=== PATIENT | female | born 1980 | race African-American/Black ===

== ENCOUNTER 2016-10-15 13:58 | Emergency (ER) | payer MEDICAID ==
[2016-10-15 15:55] LABS: APPEARANCE CLEAR (CLEAR); BILIRUBIN NEGATIVE (NEGATIVE); COLOR YELLOW (YELLOW); GLUCOSE NEGATIVE (NEGATIVE); KETONE NEGATIVE (NEGATIVE); LEUKOCYTE ESTERASE NEGATIVE (NEGATIVE); NITRITE NEGATIVE (NEGATIVE); PROTEIN NEGATIVE (NEGATIVE); SPECIFIC GRAVITY 1.015 (1.005-1.020); UROBILINOGEN NORMAL (NORMAL)
[2016-10-15 15:56] LABS: BASOPHILS 0.3 % (0.0-2.0); EOSINOPHILS 2.5 % (0-7); HEMATOCRIT 40.7 % (36.0-48.0); HEMOGLOBIN 13.7 g/dL (12-16); IMMATURE GRANULOCYTES 0.1 % (0-5); LYMPHOCYTES 42.3 % (15-50); MCHC 33.7 g/dL (31.0-37.0); MCV 89.1 fL (80.0-100.0); MEAN PLATELET VOLUME 11.2 fL (7.4-10.4); MONOCYTES 6.3 % (2-11); NEUTROPHILS 48.5 % (40-80); PLATELET COUNT 168 10x3/uL (130-400); RBC 4.57 10x6/uL (4.00-5.40); RDW 12.7 % (11.5-14.5); WBC 7.3 10x3/uL (4.8-10.8)
[2016-10-15 16:04] LABS: HCG SERUM NEGATIVE (NEGATIVE)
[2016-10-15 16:13] LABS: ALBUMIN 3.7 g/dL (3.4-5.0); ANION GAP 12.7 mmol/L (8-16); BILIRUBIN - TOTAL 0.53 mg/dL (0.2-1.3); CALCIUM 9.2 mg/dL (8.5-10.1); CARBON DIOXIDE 28.7 mmol/L (21.0-32.0); POTASSIUM - SERUM 4.4 mmol/L (3.5-5.1); PROTEIN - SERUM 7.5 g/dL (6.4-8.2)
[2016-10-15 16:14] LABS: VALPROIC ACID (DEPAKOTE) 56.7 ug/mL (50.0-100.0)
== END 2016-10-15 17:18 | disposition home or self-care (01) ==
LOC: D.ER 13:58
PROVIDERS: Emergency Medicine
DX: N73.0 Acute parametritis and pelvic cellulitis (principal); R73.03 Prediabetes; G40.909 Epilepsy, unspecified, not intractable, without status epilepticus; F17.200 Nicotine dependence, unspecified, uncomplicated

== ENCOUNTER 2016-10-28 15:47 | Emergency (ER) | payer MEDICAID ==
[2016-10-28 18:12] LABS: BASOPHILS 0.4 % (0-2); EOSINOPHILS 3.5 % (0-7); HEMATOCRIT 41.6 % (36.0-48.0); HEMOGLOBIN 13.8 g/dL (12-16); IMMATURE GRANULOCYTES 0.4 % (0-5); LYMPHOCYTES 29.7 % (15-50); MCH 29.9 pg (26.0-34.0); MCHC 33.2 g/dL (31.0-37.0); MONOCYTES 7.3 % (2-11); NEUTROPHILS 58.7 % (40-80); PLATELET COUNT 196 10x3/uL (130-400); RBC 4.62 10x6/uL (4.00-5.40); WBC 7.5 10x3/uL (4.8-10.8)
[2016-10-28 18:35] LABS: ALBUMIN 3.8 g/dL (3.4-5.0); ANION GAP 15.5 mmol/L (8-16); BILIRUBIN - TOTAL 0.24 mg/dL (0.2-1.3); CALCIUM 9.7 mg/dL (8.5-10.1); CARBON DIOXIDE 25.6 mmol/L (21.0-32.0); CREATININE - SERUM 1.1 mg/dL (0.6-1.3); POTASSIUM - SERUM 4.1 mmol/L (3.5-5.1); PROTEIN - SERUM 7.3 g/dL (6.4-8.2)
== END 2016-10-28 20:10 | disposition home or self-care (01) ==
LOC: D.ER 15:47
PROVIDERS: Emergency Medicine
DX: J06.9 Acute upper respiratory infection, unspecified (principal); J20.9 Acute bronchitis, unspecified; F17.200 Nicotine dependence, unspecified, uncomplicated; R73.03 Prediabetes; G40.909 Epilepsy, unspecified, not intractable, without status epilepticus

== ENCOUNTER 2017-03-02 04:45 | Emergency (ER) | payer MEDICAID ==
[2017-03-02 06:01] LABS: BASOPHILS 0.3 % (0-2); EOSINOPHILS 2.9 % (0-7); HEMATOCRIT 39.3 % (36.0-48.0); HEMOGLOBIN 13.2 g/dL (12-16); IMMATURE GRANULOCYTES 0.3 % (0-5); LYMPHOCYTES 46.5 % (15-50); MCH 29.5 pg (26.0-34.0); MCHC 33.6 g/dL (31.0-37.0); MCV 87.9 fL (80.0-100.0); MEAN PLATELET VOLUME 10.9 fL (7.4-10.4); MONOCYTES 7.9 % (2-11); NEUTROPHILS 42.1 % (40-80); PLATELET COUNT 196 10x3/uL (130-400); RBC 4.47 10x6/uL (4.00-5.40); WBC 7.9 10x3/uL (4.8-10.8)
[2017-03-02 06:11] LABS: ALBUMIN 3.6 g/dL (3.4-5.0); ANION GAP 14.6 mmol/L (8-16); BILIRUBIN - TOTAL 0.34 mg/dL (0.2-1.3); CARBON DIOXIDE 24.5 mmol/L (21.0-32.0); CREATININE - SERUM 0.9 mg/dL (0.6-1.3); POTASSIUM - SERUM 4.1 mmol/L (3.5-5.1); PROTEIN - SERUM 7.4 g/dL (6.4-8.2); VALPROIC ACID (DEPAKOTE) 43.4 ug/mL (50.0-100.0)
[2017-03-02 06:25] LABS: UDS - AMPHET NEGATIVE QUAL (NEGATIVE); UDS - BARB NEGATIVE QUAL (NEGATIVE); UDS - BENZO NEGATIVE QUAL (NEGATIVE); UDS - COCAINE NEGATIVE QUAL (NEGATIVE); UDS - METH NEGATIVE QUAL (NEGATIVE); UDS - OPIATE NEGATIVE QUAL (NEGATIVE); UDS - PCP NEGATIVE QUAL (NEGATIVE); UDS - THC NEGATIVE QUAL (NEGATIVE)
[2017-03-02 06:36] LABS: HCG URINE NEGATIVE (NEGATIVE)
[2017-03-02 06:41] LABS: APPEARANCE HAZY (CLEAR); BACTERIA FEW /hpf (NONE SEEN); BILIRUBIN NEGATIVE (NEGATIVE); COLOR YELLOW (YELLOW); GLUCOSE NEGATIVE (NEGATIVE); GRANULAR CAST RARE /lpf (NONE SEEN); KETONE NEGATIVE (NEGATIVE); LEUKOCYTE ESTERASE 1+ (NEGATIVE); MUCUS <1+ /lpf (NONE SEEN); NITRITE NEGATIVE (NEGATIVE); PROTEIN NEGATIVE (NEGATIVE); RED CELLS - URINE 0-5 /hpf (0-5); UROBILINOGEN NORMAL (NORMAL)
== END 2017-03-02 06:56 | disposition home or self-care (01) ==
LOC: D.ER 04:45
PROVIDERS: Emergency Medicine
DX: A59.01 Trichomonal vulvovaginitis (principal); G40.909 Epilepsy, unspecified, not intractable, without status epilepticus; F17.200 Nicotine dependence, unspecified, uncomplicated

== ENCOUNTER 2017-03-21 14:49 | Emergency (ER) | payer MEDICAID | END 2017-03-21 17:32 | disposition home or self-care (01) | LOC: D.ER 14:49 | DX: S83.92XA Sprain of unspecified site of left knee, initial encounter (principal); X58.XXXA Exposure to other specified factors, initial encounter; Y93.89 Activity, other specified; Y92.89 Other specified places as the place of occurrence of the external cause; F17.200 Nicotine dependence, unspecified, uncomplicated ==

== ENCOUNTER 2017-04-08 07:24 | Emergency (ER) | payer MEDICAID | END 2017-04-08 08:47 | disposition home or self-care (01) | LOC: D.ER 07:24 | DX: S83.001A Unspecified subluxation of right patella, initial encounter (principal); X58.XXXA Exposure to other specified factors, initial encounter; Y93.89 Activity, other specified; Y92.029 Unspecified place in mobile home as the place of occurrence of the external cause; M25.461 Effusion, right knee; F17.200 Nicotine dependence, unspecified, uncomplicated ==

== ENCOUNTER 2017-07-22 13:11 | Emergency (ER) | payer MEDICAID | END 2017-07-22 14:52 | disposition home or self-care (01) | LOC: D.ER 13:11 | DX: M25.562 Pain in left knee (principal) ==

== ENCOUNTER 2017-09-08 15:59 | Emergency (ER) | payer SELFPAY ==
[2017-09-08 19:41] LABS: BASOPHILS 0.3 % (0-2); EOSINOPHILS 2.9 % (0-7); HEMATOCRIT 40.9 % (36.0-48.0); HEMOGLOBIN 13.7 g/dL (12-16); IMMATURE GRANULOCYTES 0.2 % (0-5); LYMPHOCYTES 44.9 % (15-50); MCH 29.5 pg (26.0-34.0); MCHC 33.5 g/dL (31.0-37.0); MEAN PLATELET VOLUME 11.4 fL (7.4-10.4); MONOCYTES 11.1 % (2-11); NEUTROPHILS 40.6 % (40-80); PLATELET COUNT 238 10x3/uL (130-400); RBC 4.65 10x6/uL (4.00-5.40); RDW 13.2 % (11.5-14.5); WBC 8.8 10x3/uL (4.8-10.8)
[2017-09-08 19:49] LABS: ALBUMIN 3.7 g/dL (3.4-5.0); ANION GAP 15.3 mmol/L (8-16); BILIRUBIN - TOTAL 0.28 mg/dL (0.2-1.3); CALCIUM 9.2 mg/dL (8.5-10.1); CARBON DIOXIDE 25.2 mmol/L (21.0-32.0); POTASSIUM - SERUM 4.5 mmol/L (3.5-5.1); PROTEIN - SERUM 7.2 g/dL (6.4-8.2)
== END 2017-09-08 21:10 | disposition home or self-care (01) ==
LOC: D.ER 15:59
PROVIDERS: Family Medicine
DX: J06.9 Acute upper respiratory infection, unspecified (principal); F17.200 Nicotine dependence, unspecified, uncomplicated

== ENCOUNTER 2017-12-28 11:59 | Emergency (ER) | payer SELFPAY ==
[~2017-12-28] VITALS: Ht 167.6 cm; Wt 104.5 kg
[2017-12-28 12:08] VITALS: Ht 167.6 cm; Wt 104.5 kg
[2017-12-28] MEDS ORDERED: DEPAKOTE250 MG PO ×2 (12:09→12:55)
[2017-12-28 13:51] VITALS: BP 132/80
== END 2017-12-28 13:51 | disposition home or self-care (01) ==
LOC: D.ER 11:59
DX: G40.909 Epilepsy, unspecified, not intractable, without status epilepticus (principal); F17.200 Nicotine dependence, unspecified, uncomplicated

== ENCOUNTER 2018-03-03 10:10 | Emergency (ER) | payer SELFPAY ==
[~2018-03-03] VITALS: Ht 167.6 cm; Wt 114.1 kg
[~2018-03-03 10:10] MED LIST: DEPAKOTE250 MG PO
[2018-03-03 10:13] VITALS: Ht 167.6 cm; Wt 114.1 kg
[2018-03-03 11:01] LABS: BASOPHILS 0.4 % (0-2); EOSINOPHILS 2.4 % (0-7); HEMATOCRIT 36.2 % (36.0-48.0); HEMOGLOBIN 12.4 g/dL (12-16); IMMATURE GRANULOCYTES 0.1 % (0-5); LYMPHOCYTES 45.7 % (15-50); MCH 29.6 pg (26.0-34.0); MCHC 34.3 g/dL (31.0-37.0); MCV 86.4 fL (80.0-100.0); MEAN PLATELET VOLUME 10.6 fL (7.4-10.4); NEUTROPHILS 44.4 % (40-80); PLATELET COUNT 220 10x3/uL (130-400); RBC 4.19 10x6/uL (4.00-5.40); WBC 6.7 10x3/uL (4.8-10.8)
[2018-03-03] MEDS ORDERED: KEPPRA500 MG PO ×2 (11:11→11:26)
[2018-03-03 11:14] LABS: ALBUMIN 3.7 g/dL (3.4-5.0); ALKALINE PHOSPHATASE 56 U/L (46-116); ALT (SGPT) 14 U/L (10-68); BILIRUBIN - TOTAL 0.41 mg/dL (0.2-1.3); CALC OSMOLALITY 272 mosm/kg (275-300); CALCIUM 8.8 mg/dL (8.5-10.1); CARBON DIOXIDE 23.6 mmol/L (21.0-32.0); CHLORIDE - SERUM 106 mmol/L (98-107); GLUCOSE 95 mg/dL (74-106); POTASSIUM - SERUM 4.2 mmol/L (3.5-5.1); PROTEIN - SERUM 7.5 g/dL (6.4-8.2); SODIUM 137 mmol/L (136-145); UREA NITROGEN 9 mg/dL (7-18); eGFR NON AFRICAN AMERICAN 66 mL/min (90-120)
[2018-03-03 11:16] LABS: VALPROIC ACID (DEPAKOTE) < 3.0 ug/mL (50.0-100.0)
[2018-03-03 14:05] VITALS: BP 124/87
== END 2018-03-03 14:06 | disposition home or self-care (01) ==
LOC: D.ER 10:10
PROVIDERS: Family Medicine
DX: G40.909 Epilepsy, unspecified, not intractable, without status epilepticus (principal); Z91.14 Patient's other noncompliance with medication regimen; F17.200 Nicotine dependence, unspecified, uncomplicated

== ENCOUNTER 2018-04-04 11:23 | Emergency (ER) | payer SELFPAY ==
[~2018-04-04] VITALS: Ht 167.6 cm; Wt 109.1 kg
[~2018-04-04 11:23] MED LIST changes: +KEPPRA500 MG PO
[2018-04-04 11:43] VITALS: Ht 167.6 cm; Wt 109.1 kg
[2018-04-04] MEDS ORDERED: IMITREX50 MG PO (13:23)
[2018-04-04] MEDS ORDERED: BUTALB-APAP-CA1 EACH PO (13:23)
[2018-04-04 15:19] VITALS: BP 120/78
== END 2018-04-04 15:00 | disposition home or self-care (01) ==
LOC: D.ER 11:23
DX: G43.909 Migraine, unspecified, not intractable, without status migrainosus (principal); R11.0 Nausea; G40.909 Epilepsy, unspecified, not intractable, without status epilepticus; F17.200 Nicotine dependence, unspecified, uncomplicated

== ENCOUNTER 2018-04-19 12:50 | Emergency (ER) | payer SELFPAY ==
[~2018-04-19] VITALS: Ht 167.6 cm; Wt 111.4 kg
[~2018-04-19 12:50] MED LIST changes: +BUTALB-APAP-CA1 EACH PO; +IMITREX50 MG PO
[2018-04-19 13:10] VITALS: Ht 167.6 cm; Wt 111.4 kg
[2018-04-19] MEDS ORDERED: VENTOLIN HFA18 GM INH (14:09)
[2018-04-19] MEDS ORDERED: OMNICEF300 MG PO (14:09)
[2018-04-19 14:27] VITALS: BP 128/87
== END 2018-04-19 14:28 | disposition home or self-care (01) ==
LOC: D.ER 12:50
DX: J01.90 Acute sinusitis, unspecified (principal); J20.9 Acute bronchitis, unspecified; M79.18 Myalgia, other site; R06.09 Other forms of dyspnea; R19.7 Diarrhea, unspecified; G40.909 Epilepsy, unspecified, not intractable, without status epilepticus; F17.200 Nicotine dependence, unspecified, uncomplicated

== ENCOUNTER 2018-06-13 15:40 | Emergency (ER) | payer SELFPAY ==
[~2018-06-13] VITALS: Ht 167.6 cm; Wt 109.1 kg
[~2018-06-13 15:40] MED LIST changes: +OMNICEF300 MG PO; +VENTOLIN HFA18 GM INH
[2018-06-13 16:03] VITALS: Ht 167.6 cm; Wt 109.1 kg
[2018-06-13] MEDS ORDERED: IBUPROFEN200 MG PO (16:06)
[2018-06-13 17:19] LABS: BASOPHILS 0.7 % (0-2); EOSINOPHILS 2.4 % (0-7); HEMATOCRIT 38.1 % (36.0-48.0); HEMOGLOBIN 12.8 g/dL (12-16); IMMATURE GRANULOCYTES 0.5 % (0-5); LYMPHOCYTES 42.3 % (15-50); MCH 28.8 pg (26.0-34.0); MCHC 33.6 g/dL (31.0-37.0); MCV 85.8 fL (80.0-100.0); MEAN PLATELET VOLUME 10.2 fL (7.4-10.4); MONOCYTES 13.9 % (2-11); NEUTROPHILS 40.2 % (40-80); PLATELET COUNT 252 10x3/uL (130-400); RBC 4.44 10x6/uL (4.00-5.40); RDW 13.2 % (11.5-14.5); WBC 6.1 10x3/uL (4.8-10.8)
[2018-06-13 17:31] LABS: ANION GAP 17.5 mmol/L (8-16); CALCIUM 8.8 mg/dL (8.5-10.1); CARBON DIOXIDE 23.2 mmol/L (21.0-32.0); CREATININE - SERUM 1.1 mg/dL (0.6-1.3); POTASSIUM - SERUM 3.7 mmol/L (3.5-5.1)
[2018-06-13 18:00] LABS: APPEARANCE CLEAR (CLEAR); COLOR YELLOW (YELLOW); NITRITE NEGATIVE (NEGATIVE); SPECIFIC GRAVITY 1.015 (1.005-1.020)
[2018-06-13 18:01] LABS: BILIRUBIN NEGATIVE (NEGATIVE); GLUCOSE NEGATIVE (NEGATIVE); KETONE NEGATIVE (NEGATIVE); PROTEIN NEGATIVE (NEGATIVE); UROBILINOGEN NORMAL (NORMAL); WHITE CELLS - URINE 0-5 /hpf (0-5)
[2018-06-13] MEDS ORDERED: TORADOL10 MG PO (18:32)
[2018-06-13] MEDS ORDERED: AUGMENTIN 875-11 TAB PO (18:32)
[2018-06-13] MEDS ORDERED: MEDROL DOSE PACK4 MG PO (18:32)
[2018-06-13 18:46] VITALS: BP 148/78
== END 2018-06-13 18:47 | disposition home or self-care (01) ==
LOC: D.ER 15:40
PROVIDERS: Family Medicine
DX: J01.90 Acute sinusitis, unspecified (principal); J06.9 Acute upper respiratory infection, unspecified; F17.200 Nicotine dependence, unspecified, uncomplicated

== ENCOUNTER 2018-08-28 14:16 | Emergency (ER) | payer SELFPAY ==
[~2018-08-28] VITALS: Ht 167.6 cm; Wt 115.9 kg
[~2018-08-28 14:16] MED LIST changes: +AUGMENTIN 875-11 TAB PO; +IBUPROFEN200 MG PO; +MEDROL DOSE PACK4 MG PO; +TORADOL10 MG PO
[2018-08-28 14:20] VITALS: Ht 167.6 cm; Wt 115.9 kg
[2018-08-28] MEDS ORDERED: VIBRAMYCIN 100100 MG PO (16:54)
[2018-08-28] MEDS ORDERED: PHENERGAN DM SYR5 ML PO (16:54)
[2018-08-28] MEDS ORDERED: ALBUTEROL SULF8.5 GM INH (16:54)
[2018-08-28 17:15] VITALS: BP 136/72
== END 2018-08-28 17:29 | disposition home or self-care (01) ==
LOC: D.ER 14:16
DX: G40.909 Epilepsy, unspecified, not intractable, without status epilepticus (principal); J40 Bronchitis, not specified as acute or chronic; Z91.14 Patient's other noncompliance with medication regimen

== ENCOUNTER 2018-09-18 22:18 | Emergency (ER) | payer SELFPAY ==
[~2018-09-18] VITALS: Ht 167.6 cm; Wt 113.6 kg
[~2018-09-18 22:18] MED LIST changes: +ALBUTEROL SULF8.5 GM INH; +PHENERGAN DM SYR5 ML PO; +VIBRAMYCIN 100100 MG PO
[2018-09-18 22:25] VITALS: Ht 167.6 cm; Wt 113.6 kg
[2018-09-18 23:33] LABS: HEMATOCRIT 35.3 % (36.0-48.0); HEMOGLOBIN 11.9 g/dL (12-16); LYMPHOCYTES 50.2 % (15-50); MCH 27.8 pg (26.0-34.0); MCHC 33.7 g/dL (31.0-37.0); MCV 82.5 fL (80.0-100.0); MEAN PLATELET VOLUME 10.2 fL (7.4-10.4); NEUTROPHILS 40.6 % (40-80); PLATELET COUNT 241 10x3/uL (130-400); RBC 4.28 10x6/uL (4.00-5.40); RDW 13.2 % (11.5-14.5); WBC 7.1 10x3/uL (4.8-10.8)
[2018-09-18 23:49] LABS: ALBUMIN 3.3 g/dL (3.4-5.0); ANION GAP 14.3 mmol/L (8-16); BILIRUBIN - TOTAL 0.34 mg/dL (0.2-1.3); CALCIUM 8.7 mg/dL (8.5-10.1); CARBON DIOXIDE 22.3 mmol/L (21.0-32.0); POTASSIUM - SERUM 3.6 mmol/L (3.5-5.1); PROTEIN - SERUM 7.2 g/dL (6.4-8.2)
[2018-09-18 23:58] LABS: MAGNESIUM - SERUM 1.9 mg/dL (1.8-2.4); THYROID STIMULATING HORMONE 0.62 uIU/mL (0.36-3.74)
[2018-09-19 01:58] LABS: APPEARANCE CLEAR (CLEAR); BILIRUBIN NEGATIVE (NEGATIVE); COLOR YELLOW (YELLOW); GLUCOSE NEGATIVE (NEGATIVE); HCG URINE NEGATIVE (NEGATIVE); KETONE NEGATIVE (NEGATIVE); NITRITE NEGATIVE (NEGATIVE); PROTEIN NEGATIVE (NEGATIVE); UROBILINOGEN NORMAL (NORMAL)
[2018-09-19 01:59] LABS: BACTERIA FEW /hpf (NONE SEEN); EPITHELIAL CELLS 0-5 /hpf (0-5); RED CELLS - URINE 0-5 /hpf (0-5); WHITE CELLS - URINE 0-5 /hpf (0-5)
[2018-09-19] MEDS ORDERED: KEPPRA500 MG PO (02:15)
[2018-09-19] MEDS ORDERED: AUGMENTIN 875-11 TAB PO (02:15)
[2018-09-19 02:37] VITALS: BP 128/83
== END 2018-09-19 02:38 | disposition home or self-care (01) ==
LOC: D.ER 22:18
PROVIDERS: Family Medicine
DX: G40.909 Epilepsy, unspecified, not intractable, without status epilepticus (principal); J01.90 Acute sinusitis, unspecified

== ENCOUNTER 2018-10-20 07:20 | Emergency (ER) | payer SELFPAY ==
[~2018-10-20] VITALS: Ht 167.6 cm; Wt 113.2 kg
[2018-10-20 07:39] VITALS: Ht 167.6 cm; Wt 113.2 kg
[2018-10-20] MEDS ORDERED: CYCLOBENZAPRINE5 MG PO (08:14)
[2018-10-20] MEDS ORDERED: NAPROSYN500 MG PO (08:14)
[2018-10-20 08:20] VITALS: BP 138/79
== END 2018-10-20 08:21 | disposition home or self-care (01) ==
LOC: D.ER 07:20
DX: S46.911A Strain of unspecified muscle, fascia and tendon at shoulder and upper arm level, right arm, initial encounter (principal); X58.XXXA Exposure to other specified factors, initial encounter

== ENCOUNTER 2018-11-07 20:33 | Emergency (ER) | payer SELFPAY ==
[~2018-11-07] VITALS: Ht 167.6 cm; Wt 109.1 kg
[~2018-11-07 20:33] MED LIST changes: +CYCLOBENZAPRINE5 MG PO; +NAPROSYN500 MG PO
[2018-11-07 20:40] VITALS: BP 136/109; Ht 167.6 cm; Wt 109.1 kg
[2018-11-07 21:28] LABS: BASOPHILS 0.2 % (0-2); EOSINOPHILS 1.9 % (0-7); HEMATOCRIT 37.7 % (36.0-48.0); HEMOGLOBIN 12.6 g/dL (12-16); IMMATURE GRANULOCYTES 0.2 % (0-5); LYMPHOCYTES 22.4 % (15-50); MCH 27.3 pg (26.0-34.0); MCHC 33.4 g/dL (31.0-37.0); MCV 81.6 fL (80.0-100.0); MEAN PLATELET VOLUME 10.2 fL (7.4-10.4); MONOCYTES 5.3 % (2-11); PLATELET COUNT 240 10x3/uL (130-400); RBC 4.62 10x6/uL (4.00-5.40); RDW 13.8 % (11.5-14.5); WBC 8.8 10x3/uL (4.8-10.8)
[2018-11-07 21:47] LABS: ALBUMIN 3.5 g/dL (3.4-5.0); ANION GAP 12.5 mmol/L (8-16); BILIRUBIN - TOTAL 0.46 mg/dL (0.2-1.3); CALCIUM 9.1 mg/dL (8.5-10.1); CARBON DIOXIDE 24.5 mmol/L (21.0-32.0); PROTEIN - SERUM 7.6 g/dL (6.4-8.2)
[2018-11-08] MEDS ORDERED: TESSALON PERLE100 MG PO (20:08)
[2018-11-08] MEDS ORDERED: ALBUTEROL SULF8.5 GM INH (20:08)
[2018-11-08] MEDS ORDERED: LEVOFLOXACIN500 MG PO (20:09)
== END 2018-11-07 22:51 | disposition home or self-care (01) ==
LOC: D.ER 20:33
PROVIDERS: Family Medicine
DX: R09.89 Other specified symptoms and signs involving the circulatory and respiratory systems (principal)

== ENCOUNTER 2018-11-08 18:46 | Emergency (ER) | payer SELFPAY ==
[~2018-11-08] VITALS: Ht 167.6 cm; Wt 110.9 kg
[2018-11-08 18:59] VITALS: Ht 167.6 cm; Wt 110.9 kg
[2018-11-08] MEDS ORDERED: TESSALON PERLE100 MG PO (20:08)
[2018-11-08] MEDS ORDERED: ALBUTEROL SULF8.5 GM INH (20:08)
[2018-11-08] MEDS ORDERED: LEVOFLOXACIN500 MG PO (20:09)
[2018-11-08 20:24] VITALS: BP 135/86
== END 2018-11-08 20:25 | disposition home or self-care (01) ==
LOC: D.ER 18:46
DX: J40 Bronchitis, not specified as acute or chronic (principal)

== ENCOUNTER 2019-01-02 22:38 | Emergency (ER) | payer SELFPAY ==
[~2019-01-02] VITALS: Ht 167.6 cm; Wt 112.3 kg
[~2019-01-02 22:38] MED LIST changes: +LEVOFLOXACIN500 MG PO; +TESSALON PERLE100 MG PO
[2019-01-02 22:52] VITALS: BP 133/88; Ht 167.6 cm; Wt 112.3 kg
== END 2019-01-03 00:32 | disposition left against medical advice (07) ==
LOC: D.ER 22:38
DX: R05 Cough (principal); R09.89 Other specified symptoms and signs involving the circulatory and respiratory systems

== ENCOUNTER 2019-02-16 22:02 | Emergency (ER) | payer SELFPAY ==
[2019-01-02 22:52] VITALS: Ht 167.6 cm; Wt 111.4 kg
[~2019-02-16] VITALS: Ht 167.6 cm; Wt 111.4 kg
[2019-02-16] MEDS ORDERED: KEPPRA500 MG PO (23:27)
[2019-02-16 23:42] VITALS: BP 114/77
== END 2019-02-16 23:42 | disposition home or self-care (01) ==
LOC: D.ER 22:02
DX: G40.909 Epilepsy, unspecified, not intractable, without status epilepticus (principal); R53.81 Other malaise

== ENCOUNTER 2019-04-05 21:57 | Emergency (ER) | payer SELFPAY ==
[~2019-04-05] VITALS: Ht 167.6 cm; Wt 109.1 kg
[2019-04-05 22:26] VITALS: Ht 167.6 cm; Wt 109.1 kg
[2019-04-06] MEDS ORDERED: ZOFRAN ODT4 MG/UDTAB PO (02:43)
[2019-04-06 03:03] VITALS: BP 112/78
== END 2019-04-06 03:03 | disposition home or self-care (01) ==
LOC: D.ER 21:57
DX: R11.2 Nausea with vomiting, unspecified (principal)

== ENCOUNTER 2019-06-15 14:47 | Emergency (ER) | payer SELFPAY ==
[~2019-06-15] VITALS: Ht 167.6 cm; Wt 108.3 kg
[~2019-06-15 14:47] MED LIST changes: +ZOFRAN ODT4 MG/UDTAB PO
[2019-06-15 15:04] VITALS: Ht 167.6 cm; Wt 108.3 kg
[2019-06-15] MEDS ORDERED: DEPO (15:11)
[2019-06-15] MEDS ORDERED: EC-NAPROSYN500 MG PO (17:10)
[2019-06-15 17:23] VITALS: BP 138/96
== END 2019-06-15 17:25 | disposition home or self-care (01) ==
LOC: D.ER 14:47
DX: R51 Headache (principal); R11.0 Nausea; H53.149 Visual discomfort, unspecified

== ENCOUNTER 2019-09-07 07:19 | Emergency (ER) | payer OTHER ==
[~2019-09-07] VITALS: Ht 167.6 cm; Wt 110.9 kg
[~2019-09-07 07:19] MED LIST changes: +DEPO; +EC-NAPROSYN500 MG PO
[2019-09-07 07:23] VITALS: Ht 167.6 cm; Wt 110.9 kg
[2019-09-07 07:43] LABS: BILIRUBIN NEGATIVE (NEGATIVE); GLUCOSE NEGATIVE (NEGATIVE); KETONE NEGATIVE (NEGATIVE); NITRITE NEGATIVE (NEGATIVE); UROBILINOGEN NORMAL (NORMAL)
[2019-09-07 07:56] LABS: HCG URINE NEGATIVE (NEGATIVE)
[2019-09-07 08:12] LABS: BASOPHILS 0.2 % (0-2); EOSINOPHILS 1.7 % (0-7); HEMATOCRIT 37.6 % (36.0-48.0); HEMOGLOBIN 12.2 g/dL (12-16); IMMATURE GRANULOCYTES 0.2 % (0-5); LYMPHOCYTES 33.3 % (15-50); MCH 26.9 pg (26.0-34.0); MCHC 32.4 g/dL (31.0-37.0); MEAN PLATELET VOLUME 9.7 fL (7.4-10.4); MONOCYTES 7.5 % (2-11); NEUTROPHILS 57.1 % (40-80); PLATELET COUNT 249 10x3/uL (130-400); RBC 4.53 10x6/uL (4.00-5.40); RDW 14.4 % (11.5-14.5); WBC 8.1 10x3/uL (4.8-10.8)
[2019-09-07 08:31] LABS: ALKALINE PHOSPHATASE 62 U/L (30-120); ALT (SGPT) 16 U/L (10-68); AMYLASE - SERUM 29 U/L (25-115); BILIRUBIN - TOTAL 0.52 mg/dL (0.2-1.3); CALC OSMOLALITY 280 mosm/kg (275-300); CALCIUM 9.2 mg/dL (8.5-10.1); CARBON DIOXIDE 25.8 mmol/L (21.0-32.0); CHLORIDE - SERUM 106 mmol/L (98-107); GLUCOSE 109 mg/dL (74-106); LIPASE 47 U/L (73-393); POTASSIUM - SERUM 4.2 mmol/L (3.5-5.1); PROTEIN - SERUM 7.4 g/dL (6.4-8.2); SODIUM 141 mmol/L (136-145); TROPONIN-I < 0.017 ng/mL (0.000-0.060); UREA NITROGEN 9 mg/dL (7-18); eGFR NON AFRICAN AMERICAN 65 mL/min (90-120)
[2019-09-07] MEDS ORDERED: IBUPROFEN800 MG PO (08:59)
[2019-09-07] MEDS ORDERED: CYCLOBENZAPRINE10 MG PO (08:59)
[2019-09-07] MEDS ORDERED: ACETAMINOPHEN500 M1 PO (08:59)
[2019-09-07 09:31] VITALS: BP 138/88
== END 2019-09-07 09:36 | disposition home or self-care (01) ==
LOC: D.ER 07:19
PROVIDERS: Family Medicine
DX: R10.9 Unspecified abdominal pain (principal); M79.18 Myalgia, other site; T14.8XXA Other injury of unspecified body region, initial encounter

== ENCOUNTER 2019-11-07 23:11 | Emergency (ER) | payer OTHER ==
[~2019-11-07] VITALS: Ht 167.6 cm; Wt 104.5 kg
[~2019-11-07 23:11] MED LIST changes: +ACETAMINOPHEN500 M1 PO; +CYCLOBENZAPRINE10 MG PO; +IBUPROFEN800 MG PO
[2019-11-07 23:32] VITALS: Ht 167.6 cm; Wt 104.5 kg
[2019-11-08] MEDS ORDERED: KEPPRA500 MG PO (00:43)
[2019-11-08 01:18] VITALS: BP 136/88
== END 2019-11-08 01:19 | disposition home or self-care (01) ==
LOC: D.ER 23:11
DX: G40.909 Epilepsy, unspecified, not intractable, without status epilepticus (principal); Z76.0 Encounter for issue of repeat prescription

== ENCOUNTER 2019-12-11 11:00 | Inpatient (IN) | payer OTHER ==
[~2019-12-11] VITALS: Ht 167.6 cm; Wt 116.6 kg
[2019-12-11 11:50] LABS: ANION GAP 16.4 mmol/L (8-16); CALCIUM 9.6 mg/dL (8.5-10.1); CARBON DIOXIDE 22.7 mmol/L (21.0-32.0); POTASSIUM - SERUM 4.1 mmol/L (3.5-5.1)
[2019-12-11 11:55] LABS: ALBUMIN 4.3 g/dL (3.4-5.0); BILIRUBIN - TOTAL 0.71 mg/dL (0.2-1.3); PROTEIN - SERUM 7.8 g/dL (6.4-8.2)
[2019-12-11 12:07] VITALS: BP 130/78
[2019-12-11 12:12] LABS: BACTERIA MODERATE /hpf (NEGATIVE); BILIRUBIN NEGATIVE (NEGATIVE); GLUCOSE NEGATIVE (NEGATIVE); KETONE NEGATIVE (NEGATIVE); NITRITE NEGATIVE (NEGATIVE); RED CELLS - URINE 0-5 /hpf (0-5); SPECIFIC GRAVITY 1.025 (1.005-1.020); UROBILINOGEN NORMAL (NORMAL); WHITE CELLS - URINE 0-5 /hpf (NEGATIVE)
[2019-12-11 12:21] LABS: HEMATOCRIT 42.5 % (36.0-48.0); HEMOGLOBIN 13.8 g/dL (12-16); LYMPHOCYTES 45.9 % (15-50); MCHC 32.5 g/dL (31.0-37.0); MEAN PLATELET VOLUME 10.3 fL (7.4-10.4); NEUTROPHILS 41.5 % (40-80); PLATELET COUNT 281 10x3/uL (130-400); RBC 5.12 10x6/uL (4.00-5.40); RDW 13.8 % (11.5-14.5); WBC 6.6 10x3/uL (4.8-10.8)
[2019-12-11 12:22] LABS: HCG SERUM NEGATIVE (NEGATIVE)
[2019-12-11 13:06] VITALS: BP 120/82
[2019-12-11 15:06] VITALS: BP 123/75
[2019-12-11 15:41] VITALS: BP 123/75; BMI 40.4
--- NOTE | 2019-12-11 16:05 | NUR ---
NEW PATIENT ADMIT FROM ER VIA WC ACCOMPANIED BY HOSPITAL STAFF. PATIENT TRANSFERRED TO HOSPITAL BED EASILY. PATIENT IS ALERT , ORIENTED X 4 AND NO ACUTE DISTRESS. PATIENT DENIES ANY PAIN AND GIVEN ICE WATER REQUESTED. PATIENT ASSESSMENT COMPLETED. PATIENT ORIENTED TATED TO ROOM AND CALL LIGHT . WILL CONTINUE WITH PLAN OF CARE. SR UP X 2 BED IN LOW POSITION AND CALL LIGHT IN REACH.
[2019-12-11 20:17] VITALS: BP 103/65
[2019-12-12 00:24] VITALS: BP 117/75
--- NOTE | 2019-12-12 00:41 | NUR ---
RECEIVED CALL FROM A GENTLEMEN STATING, HE WAS HER BROTHER AND LIVES IN [facility] REQUESTING INFORMATION REGARDING PATIENT. THIS GENTLEMEN WAS UNABLE TO PROVIDE THE PATIENTS CODE. GENTLEMEN WAS ASKED TO CALL AT 0700 AND THAT IF THE PATIENT WAS HERE WHEN WOULD TRANSFER CALL TO HER ROOM.
[2019-12-12 05:11] VITALS: BP 113/67
[2019-12-12 06:13] LABS: BASOPHILS 0.4 % (0-2); EOSINOPHILS 2.4 % (0-7); HEMATOCRIT 34.8 % (36.0-48.0); HEMOGLOBIN 11.1 g/dL (12-16); IMMATURE GRANULOCYTES 0.2 % (0-5); LYMPHOCYTES 34.5 % (15-50); MCHC 31.9 g/dL (31.0-37.0); MCV 84.7 fL (80.0-100.0); MEAN PLATELET VOLUME 10.1 fL (7.4-10.4); MONOCYTES 15.9 % (2-11); NEUTROPHILS 46.6 % (40-80); PLATELET COUNT 239 10x3/uL (130-400); RBC 4.11 10x6/uL (4.00-5.40); RDW 13.8 % (11.5-14.5)
[2019-12-12 06:41] LABS: ALBUMIN 3.2 g/dL (3.4-5.0); ANION GAP 13.5 mmol/L (8-16); BILIRUBIN - TOTAL 0.57 mg/dL (0.2-1.3); CALCIUM 8.6 mg/dL (8.5-10.1); CARBON DIOXIDE 20.5 mmol/L (21.0-32.0); CREATININE - SERUM 0.9 mg/dL (0.6-1.3); MAGNESIUM - SERUM 1.9 mg/dL (1.8-2.4); PHOSPHOROUS 3.1 mg/dL (2.5-4.9); PROTEIN - SERUM 6.6 g/dL (6.4-8.2); T4 THYROXIN - FREE 1.01 ng/dL (0.76-1.46); THYROID STIMULATING HORMONE 0.53 uIU/mL (0.36-3.74)
[2019-12-12 07:24] VITALS: BP 113/66
--- NOTE | 2019-12-12 12:22 | NUR ---
I have reviewed this patient and I concur with the Shift Assessment completed by the Licensed Practical Nurse today this shift.
[2019-12-12 12:37] VITALS: BP 119/84
[2019-12-12 13:05] VITALS: Ht 167.6 cm; Wt 116.6 kg
[2019-12-12 16:20] VITALS: BP 120/78; BP 133/60
--- NOTE | 2019-12-12 19:00 | NUR ---
RECEIVED BEDSDIE REPORT. PATIENT IS ALERT AND ORIENTED, RESTING COMFORTABLY IN BED. RESPIRATIONS ARE EVEN AND UNLABORED. NO S/S OF DISTRESS. NO C/OPAIN. CALLLIGHT WITHIN REACH. WILL CPOC.
[2019-12-12 20:00] VITALS: BP 104/367
[2019-12-13] VITALS: BP 110/74
[2019-12-13 04:00] VITALS: BP 136/73
[2019-12-13 05:33] LABS: HEMATOCRIT 34.6 % (36.0-48.0); HEMOGLOBIN 11.3 g/dL (12-16); LYMPHOCYTES 37.7 % (15-50); MCH 27.2 pg (26.0-34.0); MCHC 32.7 g/dL (31.0-37.0); MCV 83.4 fL (80.0-100.0); MEAN PLATELET VOLUME 10.4 fL (7.4-10.4); NEUTROPHILS 45.4 % (40-80); PLATELET COUNT 220 10x3/uL (130-400); RBC 4.15 10x6/uL (4.00-5.40); RDW 13.6 % (11.5-14.5); WBC 4.3 10x3/uL (4.8-10.8)
[2019-12-13 05:51] LABS: ANION GAP 12.8 mmol/L (8-16); CALCIUM 8.6 mg/dL (8.5-10.1); CREATININE - SERUM 0.9 mg/dL (0.6-1.3); POTASSIUM - SERUM 3.8 mmol/L (3.5-5.1)
--- NOTE | 2019-12-13 07:02 | HP ---
PATIENT: MOISES TRACY MEDICAL RECORD: [id number] ACCOUNT: [id number] LOCATION:[address] : [birth year] ADMISSION DATE: 12/11/19 PCP: No PCP HISTORY AND PHYSICAL EXAMINATION REASON FOR ADMISSION: Abdominal pain with diarrhea. HISTORY OF PRESENT ILLNESS: The patient is a 38-year-old -Danish female who states for the last 3 weeks, she has had frequent stools. She has had maybe 10-12 a day and thought it was just a viral thing, when it did not clear up, she came to the ER. She has had increasing stools and noticed some blood in her stool over the last 2 days. She has not had fever, pain has been 4/10 on pain scale. She is on no anti-inflammatories and states she has never had any symptoms like this. She denies any recent foreign travel. PAST MEDICAL HISTORY: Childhood seizures control. History of anemia external hemorrhoids, ovarian cyst, had a syncopal episode with a head contusion from a seizure several years ago. PAST SURGICAL HISTORY: She had a D and C after a failed in 2003. She denies any other surgeries. FAMILY HISTORY: Paternal grandmother of breast cancer. Primary relatives are healthy. Lung cancer in maternal grandfather. SOCIAL HISTORY: She smokes half pack a day. She denies using any illicit drugs. She is sexually active on Depo-Provera. ALLERGIES: CODEINE. HOME MEDICATIONS: Depo-Provera monthly and Keppra 500 mg p.o. b.i.d. REVIEW OF SYSTEMS: CONSTITUTIONAL: No fever or fatigue. HEENT: No recent visual change, sinus congestion, or sore throat. RESPIRATORY: No SOB or cough. CARDIAC: No exertional chest pain, claudication, or edema . GASTROINTESTINAL: She has had some nausea, but no vomiting. She has had diffuse abdominal cramping and pain, increasing over the last 3 weeks with 10-12 stools daily now developing bloody stools. ENDOCRINE: Denies polyuria, polydipsia, heat, or cold intolerance. NEUROLOGIC: Denies headaches or visual changes. INTEGUMENT: No recent seizures. Seizure onset was age 4. GYNECOLOGICAL: 3 with remote D and C. No menstrual periods recently due to Depo-Provera. PSYCHIATRIC: Denies depressed mood. PHYSICAL EXAMINATION: VITAL SIGNS: Temperature 97.3, pulse 70, respirations 18, blood pressure 125/82 with a sat 99% on room air. GENERAL: Alert, oriented, pleasant 38-year-old -Danish female in no acute distress. Her eyes are clear and nonicteric. Oropharynx unremarkable. NECK: Supple. CHEST: Clear. HEART: Regular rate without murmur. HISTORY AND PHYSICAL [id number] DEMARCUSLATRENA Landy ABDOMEN: Obese, soft, tender diffusely without rebound. No masses were felt. Bowel sounds are hyperactive. RECTAL: Deferred. EXTREMITIES: No CCE. SKIN: No rash. LABORATORY DATA: Shows sodium of 139 and potassium 4.1. BUN and creatinine are 8 and 1.0. Liver functions are normal. Beta hCG is negative. White count 6600, H and H of 13.8 and 42.5 respectively with normal diff. Urine is cloudy, 1+ blood, 2-5 white and red cells, moderate bacteria. CT of the abdomen shows normal appendix, mucosal thickening suggestive within the colon with numerous subcentimeter lymph nodes. ASSESSMENT: Diarrhea with abdominal pain and melena compatible with colitis, etiology unknown. History of seizures, stable and Trichomonas vaginitis. PLAN: Will be admitted for IV fluids, stool cultures, and IV antibiotics. Further workup pending clinical course. TRANSINT:[id number] Voice Confirmation ID: [id number] DOCUMENT ID: [id number] LIZ HUTSON MD at 0702 CC: [id number] DICTATION DATE: 12/11/19 174 EXTRUSION UTILITY WORKER: 12/11/19 2225 ADM IN [place] [id number] [place] [address]
[2019-12-13] MEDS ORDERED: CIPRO500 MG PO (07:51)
[2019-12-13] MEDS ORDERED: FLORAJEN3 CAPS460 MG PO (07:51)
[2019-12-13] MEDS ORDERED: FLAGYL500 MG PO (07:52)
[2019-12-13 09:06] LABS: ERYTHROCYTE SEDIMENTATION RATE 16 mm/hr (0-20)
[2019-12-13] MEDS ORDERED: PEPCID AC20 MG PO (09:39)
--- NOTE | 2019-12-13 09:53 | NUR ---
LEFT HAND 22G IV DC'D WITH CATH INTACT. DISCHARGE TEACHING AND INSTRUCTIONS GIVEN TO PT. PT VERBALIZED UNDERSTANDING. CHART COPY SIGNED.
--- NOTE | 2019-12-13 10:16 | NUR ---
PT TAKEN OUT VIA WC.
[2019-12-14 10:11] LABS: ANA REFLEX - DIRECT Negative (Negative)
[2019-12-14 19:08] LABS: OVA + PARASITE EXAM Final report (())
== END 2019-12-13 10:17 | disposition home or self-care (01) | DRG 392 ==
LOC: D.ER 11:00 → D.M2 14:14
PROVIDERS: Family Medicine; ADMIT Family Medicine; ATTEND Family Medicine
DX: K52.9 Noninfective gastroenteritis and colitis, unspecified (principal); A59.01 Trichomonal vulvovaginitis; G40.909 Epilepsy, unspecified, not intractable, without status epilepticus; Z72.0 Tobacco use; N83.209 Unspecified ovarian cyst, unspecified side

== ENCOUNTER 2020-01-01 15:46 | Emergency (ER) | payer OTHER ==
[~2020-01-01] VITALS: Ht 167.6 cm; Wt 109.1 kg
[~2020-01-01 15:46] MED LIST changes: +CIPRO500 MG PO; +FLAGYL500 MG PO; +FLORAJEN3 CAPS460 MG PO; +PEPCID AC20 MG PO
[2020-01-01 15:54] VITALS: Ht 167.6 cm; Wt 109.1 kg
[2020-01-01] MEDS ORDERED: NAPROSYN500 MG PO (18:16)
[2020-01-01 18:23] VITALS: BP 118/76
== END 2020-01-01 18:23 | disposition home or self-care (01) ==
LOC: D.ER 15:46
DX: I80.9 Phlebitis and thrombophlebitis of unspecified site (principal)

== ENCOUNTER 2020-01-07 23:11 | Inpatient (IN) | payer OTHER ==
[~2020-01-07] VITALS: Ht 167.6 cm; Wt 106.6 kg
[2020-01-08] VITALS (9 sets, daily range): BP systolic 103–114; BP diastolic 65–77; BMI 38.0
[2020-01-08 00:25] LABS: BASOPHILS 0.6 % (0-2); EOSINOPHILS 6.5 % (0-7); HEMATOCRIT 36.4 % (36.0-48.0); HEMOGLOBIN 11.8 g/dL (12-16); IMMATURE GRANULOCYTES 0.2 % (0-5); LYMPHOCYTES 39.7 % (15-50); MCH 27.3 pg (26.0-34.0); MCHC 32.4 g/dL (31.0-37.0); MCV 84.1 fL (80.0-100.0); MEAN PLATELET VOLUME 9.6 fL (7.4-10.4); MONOCYTES 17.2 % (2-11); NEUTROPHILS 35.8 % (40-80); RBC 4.33 10x6/uL (4.00-5.40); RDW 13.6 % (11.5-14.5); WBC 6.3 10x3/uL (4.8-10.8)
[2020-01-08 00:30] LABS: PLATELET COUNT 395 10x3/uL (130-400)
[2020-01-08 00:36] LABS: ANION GAP 14.9 mmol/L (8-16); CALCIUM 9.3 mg/dL (8.5-10.1); CARBON DIOXIDE 24.8 mmol/L (21.0-32.0); CREATININE - SERUM 1.2 mg/dL (0.6-1.3); POTASSIUM - SERUM 3.7 mmol/L (3.5-5.1)
[2020-01-08 00:40] LABS: ALBUMIN 3.8 g/dL (3.4-5.0); BILIRUBIN - TOTAL 0.52 mg/dL (0.2-1.3); PROTEIN - SERUM 7.9 g/dL (6.4-8.2)
[2020-01-08 00:45] LABS: HCG SERUM NEGATIVE (NEGATIVE)
[2020-01-08 01:55] LABS: BILIRUBIN NEGATIVE (NEGATIVE); GLUCOSE NEGATIVE (NEGATIVE); KETONE NEGATIVE (NEGATIVE); NITRITE NEGATIVE (NEGATIVE); SPECIFIC GRAVITY 1.015 (1.005-1.020); UROBILINOGEN NORMAL (NORMAL)
[2020-01-08 01:57] LABS: BACTERIA FEW /hpf (NEGATIVE); EPITHELIAL CELLS 0-5 /hpf (0-5); RED CELLS - URINE 0-5 /hpf (0-5); WHITE CELLS - URINE 0-5 /hpf (NEGATIVE)
--- NOTE | 2020-01-08 08:19 | NUR ---
stool sample sent to the lab.
--- NOTE | 2020-01-08 15:00 | NUR ---
RECIEVED PT FROM ER. PT REQUESTED TO GET IN THE SHOWER. PROVIDED PT WITH ALL REQUESTED ITEMS. REINFORCED IV. DENIES ANY OTHER NEEDS. WILL CONTINUE TO MONITOR.
--- NOTE | 2020-01-08 18:26 | NUR ---
ADMINISTERED PRN MORPHINE FOR PAIN LEVEL 10/10. PT IS RESTING COMFORTABLY IN BED. PROVIDED PT WITH A DRINK PER REQUEST. DENIES ANY OTHER NEEDS. WILL CONTINUE TO MONITOR.
--- NOTE | 2020-01-08 19:09 | NUR ---
PT RESTING IN BED WITH EYES CLOSED, BREATHING EVEN AND UNLABORED, NO S/S OF DISTRESS NOTED AT THIS TIME. EASILY AROUSES TO VOICE, DENIES ANY NEEDS. BED IN LOWEST POSITION, BED RAILS X2, CALL LIGHT WITHIN REACH. PASSING TO SOFTWARE EDUCATOR.
--- NOTE | 2020-01-08 20:50 | NUR ---
ALERT AND ORIENTED X4. RESP EVEN AND NONLABORED. RATES ABD PAIN 10. REPORTS NAUSEA AND DIARRHEA TODAY. INSTRUCTED OF NEED FOR STOOL SPECIMEN. AMBULATORY. SALINE LOCK NOTED TO LT FOREARM. STATES MORPHINE ISNT HELPING PAIN. NOTIFIED ROME ESPINOZA. ZOFRAN FREQUENCY CHANGED. INFORMED PT OF THIS AND SHE VERBALIZED UNDERSTANDING. ALSO REVIEWED SIDE EFFECTS OF FLAGYL WITH HER AND EXPLAINED THAT IT WASNT UNCOMMON FOR THIS MED TO CAUSE GI UPSET AND FOR MORPHINE TO CAUSE N/V.
[2020-01-09] VITALS: BP 119/63
--- NOTE | 2020-01-09 01:45 | NUR ---
RESTED WELL UNTIL NOW. SITTING UP IN BED. MEDICATED WITH MORPHINE AND ZOFRAN FOR C/O ABD CRAMPING AND NAUSEA. STOOL SPECIMEN OBTAINED AND SENT TO LAB. CL IN REACH.
[2020-01-09 04:00] VITALS: BP 121/89
--- NOTE | 2020-01-09 04:01 | NUR ---
RESTIN QUIETLY WITH EYES CLOSED. NO DISTRESS. CL IN REACH.
[2020-01-09 05:19] LABS: BASOPHILS 0.3 % (0-2); EOSINOPHILS 4.4 % (0-7); HEMATOCRIT 30.5 % (36.0-48.0); HEMOGLOBIN 9.8 g/dL (12-16); IMMATURE GRANULOCYTES 0.2 % (0-5); LYMPHOCYTES 36.5 % (15-50); MCH 27.1 pg (26.0-34.0); MCHC 32.1 g/dL (31.0-37.0); MCV 84.3 fL (80.0-100.0); MEAN PLATELET VOLUME 9.5 fL (7.4-10.4); MONOCYTES 16.3 % (2-11); NEUTROPHILS 42.3 % (40-80); RBC 3.62 10x6/uL (4.00-5.40); RDW 13.6 % (11.5-14.5); WBC 5.7 10x3/uL (4.8-10.8)
[2020-01-09 05:41] LABS: PLATELET COUNT 305 10x3/uL (130-400)
[2020-01-09 05:42] LABS: ALBUMIN 3.1 g/dL (3.4-5.0); BILIRUBIN - TOTAL 0.39 mg/dL (0.2-1.3); CALCIUM 8.5 mg/dL (8.5-10.1); CARBON DIOXIDE 23.8 mmol/L (21.0-32.0); POTASSIUM - SERUM 3.8 mmol/L (3.5-5.1); PROTEIN - SERUM 6.6 g/dL (6.4-8.2)
--- NOTE | 2020-01-09 08:16 | NUR ---
RECIEVED PT FROM ACCOUNTING/FINANCE TUTOR. PT IN BED WITH EYES CLOSED UPON ENTERING. BREATHING EVNE AND UNLABORED, NO S/S OF DISTRESS NOTED AT THS TIME. LEFT FOREARM SL, ROOM AIR. ALERT AND ORIENTED X4, UP ADLIB. DENIES ANY NEEDS. BED IN LOWEST POSITION, BED RAILS X2, CALL LIGHT WITHIN REACH. WILL CONTINUE TO MONITOR.
[2020-01-09 08:38] VITALS: BP 106/70
--- NOTE | 2020-01-09 09:08 | NUR ---
ADMINISTERED MORNING MEDICATION, NO DIFFICULTIES. PT IS COMPLAINING OF NAUSEA AND DRY HEAVING. IS REQUESTING PUREE DIET OR SOMETHING WITH A LITTLE BIT OF SUBSTANCE FOR HER STOMACH, WILL TALK TO DR. HARRIS TODAY. DENIES ANY OTHER NEEDS. WILL CONTINUE TO MONITOR.
--- NOTE | 2020-01-09 12:25 | NUR ---
ADMINISTERED MEDICATION AT THIS TIME, NO DIFFICULTIES. AID IN ROOM OBTAINING VITALS. DENIES ANY NEEDS. WILL CONTINUE TO MONITOR.
[2020-01-09 12:41] VITALS: BP 119/63
[2020-01-09 14:21] VITALS: Ht 167.6 cm; Wt 106.6 kg
[2020-01-09 17:00] VITALS: BP 124/72
--- NOTE | 2020-01-09 17:00 | NUR ---
REMOVED IV FROM LEFT FOREARM DUE TO INFILTRATION. CATHETER TIP INTACT, COVERED SITE WITH 2X2'S AND TAPE, TOLERATED WELL.
--- NOTE | 2020-01-09 17:48 | NUR ---
ADMINISTERED MEDICATIONS. PRN PAIN MEDICATION ALSO. TOLERATED WELL. UPRIGHT IN BED EATING DINNER. DENIES ANY NEEDS. WILL CONTINUE TO MONITOR.
--- NOTE | 2020-01-09 19:00 | NUR ---
HUNG IV ABX. CALLED PHARMACY IN [place] TO ZOFRAN DRIP STILL NOT BEING AVAILABLE. STATED THEY WILL MAKE IT AND BRING IT UP DARLIN. PT RESTING IN BED WITH EYES CLOSED, BREATHING EVEN AND UNLABORED NO S/S OF DISRESS NOTED AT THIS TIME. WILL CONTINUE TO MONITOR.
--- NOTE | 2020-01-09 19:09 | NUR ---
I have reviewed this patient and I concur with the Shift Assessment completed by the Licensed Practical Nurse today this shift.
[2020-01-09 20:00] VITALS: BP 126/75
--- NOTE | 2020-01-09 20:04 | NUR ---
STARTED ZOFRAN DRIP. TOLERATED WELL. DENIES ANY NEEDS. RESTING COMFORTABLY IN THE BED. WILL CONTINUE TO MONITOR.
--- NOTE | 2020-01-09 20:31 | NUR ---
ADMINISTERED MEDICATION, NO DIFFICULTY. RESTING COMFORTABLY IN BED. DENIES ANY NEEDS. WILL CONTINUE TO MONITOR.
[2020-01-10] VITALS: BP 100/68
--- NOTE | 2020-01-10 02:09 | NUR ---
PT REQUESTING SOMETHING OTHER THAN MORPHINE FOR PAIN. STATES MAKES HER VERY NAUSEATED. Shirley BROWN APN BEEPED,
[2020-01-10 04:00] VITALS: BP 104/62
--- NOTE | 2020-01-10 04:58 | NUR ---
PT HAS HAD NO EPISODES OF N/V THIS SHIFT-ZOFRAN DRIP INFUSING. STATES STOMACH DOESNT HURT ANYMORE AFTER TYLENOL GIVEN. NO COMPLAINTS AT PRESENT. CALL LIGHT IN REACH
[2020-01-10 07:06] LABS: ALBUMIN 3.1 g/dL (3.4-5.0); ANION GAP 12.4 mmol/L (8-16); BILIRUBIN - TOTAL 0.37 mg/dL (0.2-1.3); CALCIUM 8.9 mg/dL (8.5-10.1); CARBON DIOXIDE 23.3 mmol/L (21.0-32.0); POTASSIUM - SERUM 3.7 mmol/L (3.5-5.1); PROTEIN - SERUM 6.6 g/dL (6.4-8.2)
[2020-01-10 07:07] LABS: BASOPHILS 0.3 % (0-2); EOSINOPHILS 5.4 % (0-7); HEMATOCRIT 31.6 % (36.0-48.0); IMMATURE GRANULOCYTES 0.2 % (0-5); LYMPHOCYTES 38.7 % (15-50); MCH 26.5 pg (26.0-34.0); MCHC 31.6 g/dL (31.0-37.0); MCV 83.6 fL (80.0-100.0); MEAN PLATELET VOLUME 9.7 fL (7.4-10.4); MONOCYTES 15.6 % (2-11); NEUTROPHILS 39.8 % (40-80); PLATELET COUNT 319 10x3/uL (130-400); RBC 3.78 10x6/uL (4.00-5.40); RDW 13.7 % (11.5-14.5); WBC 5.8 10x3/uL (4.8-10.8)
[2020-01-10 08:00] VITALS: BP 111/70
--- NOTE | 2020-01-10 11:53 | NUR ---
COKE PER PATIENT REQUEST. DENIES FURTHER NEEDS
[2020-01-10 12:00] VITALS: BP 108/62
--- NOTE | 2020-01-10 14:15 | NUR ---
DISCHARGE INSTRUCTIONS REVIEWED WITH PTS DAUGHTER AND VERBALIZES UNDERSTANDING WITH NO QUESTIONS. ADDITIONAL DRESSINGS GIVEN FOR CHANGES AT HOME. HAS DECLINED HOME HEALTH. IV RIGHT FOREARM DC'D WITHOUT DIFFICULTY AND SITE WITHOUT REDNESS OR EDEMA AT SITE. LEFT FLOOR VIA W/C WITH ALL PERSONAL BELONGINGS AND LEFT FACILITY VIA PRIVATE VEHICLE WITH HER DAUGHTER.
[2020-01-10 16:00] VITALS: BP 136/86
--- NOTE | 2020-01-10 18:52 | MORECARE ---
CASE MANAGEMENT DISCHARGE SUMMARY PATIENT: MOISES TRACY UNIT: [id number] ADM DATE: 01/08/20 AGE: 39 : 79 SEX: F ROOM/BED: D.2239 AUTHOR: ISRAEL KING PHYSICIAN: REFERRING PHYSICIAN: MACARENA MCDANIEL MD DATE OF SERVICE: 01/10/20 Discharge Plan Patient Name: MOISES TRACY [facility] [facility] 1980 Planned Disposition: Home Anticipated Discharge Date: Discharge Date: Expected LOS: Initial Reviewer: [email or web address] Initial Review Date: 01/10/2020 Generated: 01/10/20 7:52 pm DCPIA - Discharge Planning Initial Assessment Updated by [email or web address]: Delicia Spear on 01/10/20 6:51 pm * Is the patient Alert and Oriented? Yes * PCP NONE * Pharmacy [facility] * Preadmission Environment Home Alone * ADLs Independent * Community resources currently utilized None * Additional services required to return to the preadmission environment? No * Can the patient safely return to the preadmission environment? Yes * Has this patient been hospitalized within the prior 30 days at any hospital? Yes Patient Name: MOISES TRACY Page [id number] at 1852 All edits/amendments must be made on the electronic document DICTATION DATE: 01/10/201851 FOLDING MACHINE FEEDER: FRANK 01/10/201851 RPT#: [id number] DC DATE: STATUS: ADM IN [address] [address] END OF REPORT
--- NOTE | 2020-01-10 18:59 | MORECARE ---
CASE MANAGEMENT DISCHARGE SUMMARY PATIENT: MOISES TRACY UNIT: [id number] ADM DATE: 01/08/20 AGE: 39 : [birth year] SEX: F ROOM/BED: D.2239 AUTHOR: ISRAEL KING PHYSICIAN: REFERRING PHYSICIAN: MACARENA MCDANIEL MD DATE OF SERVICE: 01/10/20 Discharge Plan Patient Name: MOISES TRACY Facility: [facility]:[place] : 1980 Planned Disposition: Home Anticipated Discharge Date: Discharge Date: Expected LOS: Initial Reviewer: [email or web address] Initial Review Date: 01/10/2020 Generated: 01/10/20 7:59 pm Comments DCP- Discharge Planning Updated by [email or web address]: Delicia Spear on 01/10/20 5:[address] Patient Name: MOISES TRACY Admission Status: ER Accout number: [id number] Admission Date: 01-08-2020 : 1980 Admission Diagnosis: Attending: MACARENA DUENAS Current LOS: 2 Anticipated DC Date: Planned Disposition: Home Primary Insurance: AETNA PPO Discharge Planning Comments: CM MET WITH PATIENT OVER THE PHONE AFTER OBTAINING VERBAL CONSENT. DISCUSSED DC PLANNING/NEEDS WITH HER. DENIES NEEDS FOR HH, EQUIPMENT OR SNF BUT STATES WILL NEED HELP GETTING PRESCRIPTIONS IF NEW ONES ARE WRITTEN. STATES SHE IS UNABLE TO GET MEDICATIONS UNTIL SHE GETS PAID. CM WILL FOLLOW AND ASSIST NEEDED. Travel Information Center Supervisor: Delicia Spear DCPIA - Discharge Planning Initial Assessment Updated by [email or web address]: Delicia Spear on 01/10/20 6:51 pm * Is the patient Alert and Oriented? Yes * PCP NONE * Pharmacy [facility] * Preadmission Environment Home Alone * ADLs Independent * Community resources currently utilized None * Additional services required to return to the preadmission environment? No * Can the patient safely return to the preadmission environment? Yes * Has this patient been hospitalized within the prior 30 days at any hospital? Yes Last DP export: 01/10/20 5:52 pm Patient Name: MOISES TRACY Page [phone] at 1155 All edits/amendments must be made on the electronic document DICTATION DATE: 01/10/201858 CABIN MAN: FRANK 01/10/201858 RPT#: [id number] DC DATE: STATUS: ADM IN [facility] [address] [place] [address] END OF REPORT
[2020-01-10 20:00] VITALS: BP 114/78
--- NOTE | 2020-01-10 20:00 | NUR ---
PATIENT RESTING IN BED ON PHONE. NO S/S OF ACUTE DISTRESS. NO C/O AT THIS TIME. PATIENT HAS IV IN LEFT HAND, ZOFRAN @ 4.7 ML/HR. IV IS PATENT WITHOUT REDNESS, SWELLING, OR TENDERNESS. PATIENT IS UP ADLIB. PATIENT HAS COLONOSCOPY TOMORROW AND IS DRINKING GO LITELY. CALL LIGHT WITHIN REACH. WILL CONTINUE TO MONITOR/
[2020-01-11] VITALS: BP 114/74
--- NOTE | 2020-01-11 02:10 | NUR ---
PATIENT IV INFILTRATED. IV REMOVED, CATHETER TIP IN TACT. NEW IV PLACED IN RIGHT HAND. IV IS PATENT WITHOUT REDNESS, SWELLING, OR TENDERNESS. CALL LIGHT WITHIN REACH. WILL CONTINUE TO MONITOR.
[2020-01-11 04:00] VITALS: BP 117/83
[2020-01-11 06:06] LABS: ALBUMIN 3.1 g/dL (3.4-5.0); ANION GAP 11.1 mmol/L (8-16); BILIRUBIN - TOTAL 0.31 mg/dL (0.2-1.3); CALCIUM 8.4 mg/dL (8.5-10.1); CARBON DIOXIDE 24.4 mmol/L (21.0-32.0); CREATININE - SERUM 1.1 mg/dL (0.6-1.3); POTASSIUM - SERUM 3.5 mmol/L (3.5-5.1); PROTEIN - SERUM 6.6 g/dL (6.4-8.2)
[2020-01-11 06:19] LABS: BASOPHILS 1.1 % (0-2); EOSINOPHILS 5.9 % (0-7); HEMATOCRIT 30.6 % (36.0-48.0); IMMATURE GRANULOCYTES 0.2 % (0-5); LYMPHOCYTES 42.7 % (15-50); MCH 27.3 pg (26.0-34.0); MCHC 32.7 g/dL (31.0-37.0); MCV 83.6 fL (80.0-100.0); MEAN PLATELET VOLUME 10.3 fL (7.4-10.4); MONOCYTES 14.1 % (2-11); PLATELET COUNT 311 10x3/uL (130-400); RBC 3.66 10x6/uL (4.00-5.40); RDW 13.6 % (11.5-14.5); WBC 5.4 10x3/uL (4.8-10.8)
[2020-01-11 08:00] VITALS: BP 114/78
[2020-01-11 12:00] VITALS: BP 115/82
--- NOTE | 2020-01-11 13:06 | NUR ---
I have reviewed this patient and I concur with the Shift Assessment completed by the Licensed Practical Nurse today this shift.
[2020-01-11 16:00] VITALS: BP 117/80
[2020-01-11 20:00] VITALS: BP 123/76
--- NOTE | 2020-01-11 20:00 | NUR ---
PATIENT RESTING IN BED ON PHONE. NO S/S OF ACUTE DISTRESS. NO C/O A THIS TIME. PATIENT HAS RIGHT HAND IV, NORMAL SALINE @ KVO. IV IS PATENT WIHTOUT REDNESS, SWELLING, OR TENDERNESS. PATIENT IS UP ADLIB TO THE BATHROOM. CALL LIGHT WITHIN REACH. WILL CONTINUE TO MONITOR.
--- NOTE | 2020-01-12 02:14 | NUR ---
I have reviewed this patient and I concur with the Shift Assessment completed by the Licensed Practical Nurse today this shift.
[2020-01-12 06:14] LABS: HEMATOCRIT 34.5 % (36.0-48.0); HEMOGLOBIN 11.3 g/dL (12-16); LYMPHOCYTES 18.2 % (15-50); MCH 27.3 pg (26.0-34.0); MCHC 32.8 g/dL (31.0-37.0); MCV 83.3 fL (80.0-100.0); MEAN PLATELET VOLUME 10.1 fL (7.4-10.4); NEUTROPHILS 80.2 % (40-80); PLATELET COUNT 319 10x3/uL (130-400); RBC 4.14 10x6/uL (4.00-5.40); RDW 13.6 % (11.5-14.5)
[2020-01-12 06:15] LABS: WBC 7.4 10x3/uL (4.8-10.8)
[2020-01-12 06:32] LABS: ALBUMIN 3.2 g/dL (3.4-5.0); BILIRUBIN - TOTAL 0.35 mg/dL (0.2-1.3); CALCIUM 8.9 mg/dL (8.5-10.1); CREATININE - SERUM 1.1 mg/dL (0.6-1.3); PROTEIN - SERUM 7.1 g/dL (6.4-8.2)
[2020-01-12 08:51] VITALS: BP 120/73
[2020-01-12] MEDS ORDERED: AZULFIDINE500 MG PO (13:45)
[2020-01-12] MEDS ORDERED: NICODERM CQ1 EAC3 TRANSDERM (13:46)
[2020-01-12] MEDS ORDERED: FLAGYL500 MG PO (13:46)
[2020-01-12] MEDS ORDERED: PREDNISONE10 MG PO (13:48)
[2020-01-12 14:02] VITALS: BP 140/83
--- NOTE | 2020-01-12 17:16 | NUR ---
pt franklin home, went over paperwork and appointments with ptfranklin iv in pt rt hand, all questions answered. Pharmacy provided pt with enough medications to last her until tuesday then case management is working on assisting her with medications onm that day.
--- NOTE | 2020-01-13 09:14 | MORECARE ---
CASE MANAGEMENT DISCHARGE SUMMARY PATIENT: MOISES TRACY UNIT: [id number] ADM DATE: 01/08/20 AGE: 39 : 79 SEX: F ROOM/BED: D.2239 AUTHOR: ISRAEL KING PHYSICIAN: REFERRING PHYSICIAN: MACARENA MCDANIEL MD DATE OF SERVICE: 01/13/20 Discharge Plan Patient Name: MOISES TRACY Facility: [facility]:[place] : 1980 Planned Disposition: Home Anticipated Discharge Date: Discharge Date: 01/12/2020 Expected LOS: Initial Reviewer: [email or web address] Initial Review Date: 01/10/2020 Generated: 01/13/20 10:13 am Comments DCP- Discharge Planning Updated by [email or web address]: Delicia Spear on 01/10/20 5:[address] Patient Name: MOISES TRACY Admission Status: ER Accout number: [id number] Admission Date: 01-08-2020 : 1980 Admission Diagnosis: Attending: MACARENA DUENAS Current LOS: 2 Anticipated DC Date: Planned Disposition: Home Primary Insurance: AETNA PPO Discharge Planning Comments: CM MET WITH PATIENT OVER THE PHONE AFTER OBTAINING VERBAL CONSENT. DISCUSSED DC PLANNING/NEEDS WITH HER. DENIES NEEDS FOR HH, EQUIPMENT OR SNF BUT STATES WILL NEED HELP GETTING PRESCRIPTIONS IF NEW ONES ARE WRITTEN. STATES SHE IS UNABLE TO GET MEDICATIONS UNTIL SHE GETS PAID. CM WILL FOLLOW AND ASSIST NEEDED. Marketing Programs Manager: Delicia Spear DCPIA - Discharge Planning Initial Assessment Updated by [email or web address]: Delicia Spear on 01/10/20 6:51 pm * Is the patient Alert and Oriented? Yes * PCP NONE * [facility] * Preadmission Environment Home Alone * ADLs Independent * Community resources currently utilized None * Additional services required to return to the preadmission environment? No * Can the patient safely return to the preadmission environment? Yes * Has this patient been hospitalized within the prior 30 days at any hospital? Yes Last DP export: 01/10/20 5:59 pm Patient Name: MOISES TRACY Page [phone] at 0914 All edits/amendments must be made on the electronic document DICTATION DATE: 01/13/20912 PLANING MACHINE OPERATOR: FRANK 01/13/20912 RPT#: [id number] DC DATE:01/12/20 STATUS: DIS IN [facility] [address] [place] [address] END OF REPORT
--- NOTE | 2020-01-13 14:34 | MORECARE ---
CASE MANAGEMENT DISCHARGE SUMMARY PATIENT: MOISES TRACY UNIT: [id number] ADM DATE: 01/08/20 AGE: 39 : 78 SEX: F ROOM/BED: D.2239 AUTHOR: CHRISTINE,DOC PHYSICIAN: REFERRING PHYSICIAN: MACARENA MCDANIEL MD DATE OF SERVICE: 01/13/20 Discharge Plan Patient Name: MOISES TRACY Facility: [facility]:[place] : 1980 Planned Disposition: Home Anticipated Discharge Date: Discharge Date: 01/12/2020 Expected LOS: Initial Reviewer: [email or web address] Initial Review Date: 01/10/2020 Generated: 01/13/20 3:33 pm Comments DCP- Discharge Planning Updated by [email or web address]: Ayla Magallon on 01/13/20 1:[address] Late Entry 01/12/20 @ 1530 CM spoke with patient regarding discharge medications. Patient states that she has no money for her copay to get medications. Patient states that she hasn't worked in a month and doesn't have any income. CM called [employer] and spoke with Illa and she came to eval patient for Medicaid since there was an issue with regarding her insurance. CM spoke with Hand Woodworking Sander tool supervisor about assist with meds / copay. CM received approval to go through [facility] for discharge meds. [facility] pharmacy closed until Tuesday. CM got approval through power house engineer/ admin television equipment operator and CM tool supervisor to get meds sent home with patient until [facility] opens on Tuesday. Meds include Keppra 500mg #4, prednisone 40mg #2, Sulfasalazine 1000mg #6. Patient states she has Flagyl at home from last visit and has 8 tabs. CM will call in patients medications into [facility] [phone] on Tuesday am and then will call Patient [phone] and let her know that she can go pick them up. Patient agrees to plan. CM will continue to follow and assist as needed with discharge planning / needs. DCP- Discharge Planning Updated by [id number]: Delicia Spear on 01/10/20 5:[address] Patient Name: MOISES TRACY Admission Status: ER Accout number: [id number] Admission Date: 01-08-2020 : 1980 Admission Diagnosis: Attending: MACARENA DUENAS Current LOS: 2 Anticipated DC Date: Planned Disposition: Home Primary Insurance: AETNA PPO Discharge Planning Comments: CM MET WITH PATIENT OVER THE PHONE AFTER OBTAINING VERBAL CONSENT. DISCUSSED DC PLANNING/NEEDS WITH HER. DENIES NEEDS FOR HH, EQUIPMENT OR SNF BUT STATES WILL NEED HELP GETTING PRESCRIPTIONS IF NEW ONES ARE WRITTEN. STATES SHE IS UNABLE TO GET MEDICATIONS UNTIL SHE GETS PAID. CM WILL FOLLOW AND ASSIST NEEDED. Hand Woodworking Sander: Delicia Spear DCPIA - Discharge Planning Initial Assessment Updated by [email or web address]: Delicia Spear on 01/10/20 6:51 pm * Is the patient Alert and Oriented? Yes * PCP NONE * Pharmacy [facility] * Preadmission Environment Home Alone * ADLs Independent * Community resources currently utilized None * Additional services required to return to the preadmission environment? No * Can the patient safely return to the preadmission environment? Yes * Has this patient been hospitalized within the prior 30 days at any hospital? Yes Last DP export: 01/13/20 8:14 a Patient Name: MOISES TRACY Page [id number] at 1434 All edits/amendments must be made on the electronic document DICTATION DATE: 01/13/201433 MERCERIZER: FRANK 01/13/201433 RPT#: [id number] DC DATE:01/12/20 STATUS: DIS IN [facility] [address] [place] [address] END OF REPORT
[2020-01-14 12:07] LABS: OVA + PARASITE EXAM Final report (())
== END 2020-01-12 17:18 | disposition home or self-care (01) | DRG 372 ==
LOC: D.ER 23:11 → D.EDHOLD 01-08 02:28 → D.MS 01-08 02:28
PROVIDERS: Family Medicine; Internal Medicine Gastroenterology; ADMIT Family Medicine Adult Medicine; ATTEND Family Medicine Adult Medicine
PROC: 0DBE8ZX Excision of Large Intestine, Via Natural or Artificial Opening Endoscopic, Diagnostic (ICD-10-PCS; principal; 2020-01-11 11:14)
DX: A04.5 Campylobacter enteritis (principal); K51.90 Ulcerative colitis, unspecified, without complications; D64.9 Anemia, unspecified; K64.8 Other hemorrhoids; K64.4 Residual hemorrhoidal skin tags; E86.0 Dehydration

== ENCOUNTER 2020-02-23 08:29 | Emergency (ER) | payer MEDICAID ==
[~2020-02-23] VITALS: Ht 167.6 cm; Wt 112.3 kg
[~2020-02-23 08:29] MED LIST changes: +AZULFIDINE500 MG PO; +NICODERM CQ1 EAC3 TRANSDERM; +PREDNISONE10 MG PO
[2020-02-23 08:33] VITALS: Ht 167.6 cm; Wt 112.3 kg
[2020-02-23 08:50] LABS: BASOPHILS 1.6 % (0-2); IMMATURE GRANULOCYTES 0.4 % (0-5); LYMPHOCYTES 15.5 % (15-50); MCH 26.8 pg (26.0-34.0); MCHC 31.4 g/dL (31.0-37.0); MCV 85.4 fL (80.0-100.0); MEAN PLATELET VOLUME 10.7 fL (7.4-10.4); MONOCYTES 9.9 % (2-11); NEUTROPHILS 66.6 % (40-80); RDW 17.8 % (11.5-14.5); WBC 5.7 10x3/uL (4.8-10.8)
[2020-02-23 09:07] LABS: PLATELET COUNT 240 10x3/uL (130-400)
[2020-02-23 09:33] LABS: CALC OSMOLALITY 269 mosm/kg (275-300); CALCIUM 8.6 mg/dL (8.5-10.1); CARBON DIOXIDE 22.7 mmol/L (21.0-32.0); CHLORIDE - SERUM 105 mmol/L (98-107); CREATININE - SERUM 0.8 mg/dL (0.6-1.3); POTASSIUM - SERUM 3.9 mmol/L (3.5-5.1); SODIUM 136 mmol/L (136-145); UREA NITROGEN 6 mg/dL (7-18); eGFR NON AFRICAN AMERICAN 84 mL/min (90-120)
[2020-02-23 09:34] LABS: GLUCOSE 94 mg/dL (74-106)
[2020-02-23 09:37] LABS: BILIRUBIN NEGATIVE (NEGATIVE); GLUCOSE NEGATIVE (NEGATIVE); KETONE NEGATIVE (NEGATIVE); NITRITE NEGATIVE (NEGATIVE); UROBILINOGEN NORMAL (NORMAL)
[2020-02-23 09:38] LABS: RED CELLS - URINE 0-5 /hpf (0-5); WHITE CELLS - URINE 0-5 /hpf (NEGATIVE)
[2020-02-23 09:39] LABS: ALBUMIN 3.7 g/dL (3.4-5.0); ALKALINE PHOSPHATASE 142 U/L (30-120); ALT (SGPT) 106 U/L (10-68); BILIRUBIN - TOTAL 1.14 mg/dL (0.2-1.3)
[2020-02-23 09:39] LABS: BACTERIA MODERATE /hpf (NEGATIVE)
[2020-02-23] MEDS ORDERED: KEFLEX500 MG PO (10:07)
[2020-02-23] MEDS ORDERED: EPIPEN 2-P0.3 MG/0.3 IM (10:07)
[2020-02-23] MEDS ORDERED: BENADRYL50 MG PO (10:10)
[2020-02-23] MEDS ORDERED: PREDNISONE50 MG PO (10:10)
[2020-02-23 11:18] VITALS: BP 121/72
== END 2020-02-23 11:00 | disposition home or self-care (01) ==
LOC: D.ER 08:29
PROVIDERS: Family Medicine
DX: T78.3XXA Angioneurotic edema, initial encounter (principal); M54.5 Low back pain; N39.0 Urinary tract infection, site not specified; M54.2 Cervicalgia

== ENCOUNTER 2020-02-25 20:44 | Emergency (ER) | payer MEDICAID ==
[~2020-02-25] VITALS: Ht 167.6 cm; Wt 109.1 kg
[~2020-02-25 20:44] MED LIST changes: +BENADRYL50 MG PO; +EPIPEN 2-P0.3 MG/0.3 IM; +KEFLEX500 MG PO; +PREDNISONE50 MG PO
[2020-02-25 21:17] VITALS: Ht 167.6 cm; Wt 109.1 kg
[2020-02-25 23:01] LABS: EOSINOPHILS 6.4 % (0-7); HEMATOCRIT 34.5 % (36.0-48.0); HEMOGLOBIN 10.8 g/dL (12-16); IMMATURE GRANULOCYTES 0.8 % (0-5); LYMPHOCYTES 43.3 % (15-50); MCH 26.5 pg (26.0-34.0); MCHC 31.3 g/dL (31.0-37.0); MCV 84.8 fL (80.0-100.0); MEAN PLATELET VOLUME 9.2 fL (7.4-10.4); MONOCYTES 11.5 % (2-11); RBC 4.07 10x6/uL (4.00-5.40); RDW 16.7 % (11.5-14.5); WBC 10.4 10x3/uL (4.8-10.8)
[2020-02-25 23:03] LABS: PLATELET COUNT 190 10x3/uL (130-400)
[2020-02-25 23:29] LABS: ANION GAP 9.8 mmol/L (8-16); CALCIUM 8.8 mg/dL (8.5-10.1); CARBON DIOXIDE 23.9 mmol/L (21.0-32.0); CREATININE - SERUM 0.9 mg/dL (0.6-1.3); POTASSIUM - SERUM 3.7 mmol/L (3.5-5.1)
[2020-02-25 23:35] LABS: ALBUMIN 3.4 g/dL (3.4-5.0); BILIRUBIN - TOTAL 1.71 mg/dL (0.2-1.3); PROTEIN - SERUM 6.5 g/dL (6.4-8.2)
[2020-02-25] MEDS ORDERED: PREDNISONE50 MG PO (23:59)
[2020-02-26 00:24] VITALS: BP 132/78
== END 2020-02-26 00:54 | disposition home or self-care (01) ==
LOC: D.ER 20:44
PROVIDERS: Family Medicine
DX: T78.40XA Allergy, unspecified, initial encounter (principal); R21 Rash and other nonspecific skin eruption

== ENCOUNTER → 2020-03-11 14:36 | Outpatient (CLI) | payer MEDICAID ==
[2020-02-25 21:17] VITALS: BMI 38.8
[2020-03-11 15:25] LABS: BASOPHILS 0.7 % (0-2); EOSINOPHILS 0.8 % (0-7); HEMATOCRIT 35.7 % (36.0-48.0); HEMOGLOBIN 11.3 g/dL (12-16); IMMATURE GRANULOCYTES 0.2 % (0-5); LYMPHOCYTES 24.8 % (15-50); MCH 26.8 pg (26.0-34.0); MCHC 31.7 g/dL (31.0-37.0); MCV 84.8 fL (80.0-100.0); MEAN PLATELET VOLUME 9.1 fL (7.4-10.4); MONOCYTES 6.7 % (2-11); NEUTROPHILS 66.8 % (40-80); RBC 4.21 10x6/uL (4.00-5.40); RDW 16.2 % (11.5-14.5); WBC 10.6 10x3/uL (4.8-10.8)
[2020-03-11 15:28] LABS: PLATELET COUNT 392 10x3/uL (130-400)
[2020-03-11 16:05] LABS: ALBUMIN 3.9 g/dL (3.4-5.0); ANION GAP 10.2 mmol/L (8-16); BILIRUBIN - TOTAL 0.45 mg/dL (0.2-1.3); CALCIUM 9.4 mg/dL (8.5-10.1); POTASSIUM - SERUM 4.2 mmol/L (3.5-5.1); PROTEIN - SERUM 7.6 g/dL (6.4-8.2)
[2020-03-11 16:56] LABS: ERYTHROCYTE SEDIMENTATION RATE 12 mm/hr (0-20)
== END | disposition home or self-care (01) ==
LOC: D.LAB 14:36
PROVIDERS: ATTEND Internal Medicine Gastroenterology
DX: K51.90 Ulcerative colitis, unspecified, without complications (principal)